=== PATIENT | female | born 1985 | race Caucasian/White ===

== ENCOUNTER 2016-03-28 13:36 | Day surgery (SDC) | payer BC ==
[~2016-03-28] VITALS: Ht 152.4 cm; Wt 54.4 kg
[2016-03-28 14:07] VITALS: Ht 152.4 cm; Wt 54.4 kg
[2016-03-28] MEDS ORDERED: ALPR0.25 PO (14:20)
[2016-03-28] MEDS ORDERED: MIDAZOLAM 1 MG/ML 2 ML INJ ONE ×2 (15:29)
[2016-03-28] MEDS ORDERED: FENTAnyl 50 MCG/ML VIAL ONE (15:29)
[2016-03-28 15:50] VITALS: BP 106/62; PULSE 70; RESP 20
--- NOTE | 2016-03-29 00:52 | GILP ---
DATE OF PROCEDURE: PREOPERATIVE DIAGNOSIS: Extreme constipation, sometimes she cannot go to bathroom for a week, colon ic obstructive symptoms. PROCEDURE DONE: Colonoscopy. POSTOPERATIVE DIAGNOSIS: Essentially normal colon. DESCRIPTION OF PROCEDURE: After obtaining informed consent, the patient was sedated. Monitored oxi metry, EKG, blood pressure. Sedated with Versed and fentanyl. Very carefully advanced a pediatric Olympus video colonoscope all the way to cecum. Appendiceal ope naomi, ileocecal valve identified. Cecum, ascending colon, transverse colon, descending colon, sigmo id colon and rectum including retroflexion essentially normal. She received 4 mg of IV Versed, 100 mcg of fentanyl during the procedure. Postop, patient had no complication. Plan will be to advise her to take MiraLax 17 grams with 8 oun lilly of water every day, drink more fluids, take Senna tea and advised her to see me if necessary in May. Otherwise, she will follow up with the primary MD. Dictated By: AP BURNETTE Conf#: [id number] DID#: [id number] CC: Chito ; Srini Yadav;*EndCC*
== END 2016-03-28 16:24 | disposition home or self-care (01) ==
LOC: GIL 13:36
PROVIDERS: ATTEND Internal Medicine
DX: K59.00 Constipation, unspecified (principal); J45.909 Unspecified asthma, uncomplicated
CPT/HCPCS: 45378; 84703; J2250; J3010